=== PATIENT | male | born 1985 | race Caucasian/White ===

== ENCOUNTER 2019-01-19 13:12 | Outpatient (REF) | payer OTHER, SELFPAY ==
[2019-01-19 18:22] LABS: ALT 78 U/L (12-78); AST 34 U/L (15-37); Albumin 4.1 g/dL (3.4-5.0); Alkaline Phosphatase 68 U/L (46-116); Anion Gap 8.3 mmol/L (3-11); BUN 17 mg/dL (7-18); Bilirubin, Total 0.5 mg/dL (0.2-1.0); CO2 27.7 mmol/L (21.0-32.0); CREATININE 0.81 mg/dL (0.70-1.30); Calcium 9.4 mg/dL (8.5-10.1); Chloride 103 mmol/L (98-107); Cholesterol 164 mg/dL (50-200); Glucose 140 mg/dL (70-100); HDL Cholesterol 45 mg/dL (40-60); LDL CHOLESTEROL 103 mg/dL (<100); Potassium 4.1 mmol/L (3.5-5.1); Sodium 139 mmol/L (136-145); Triglyceride 70 mg/dL (30-150)
== END 2019-01-19 13:32 ==
LOC: NCHCN 13:12
PROVIDERS: PCP Family Medicine; Visit Provider Family Medicine
DX: I10 Essential (primary) hypertension (principal); R74.0 Nonspecific elevation of levels of transaminase and lactic acid dehydrogenase [LDH]; E78.5 Hyperlipidemia, unspecified
CPT/HCPCS: 80053; 80061; 83721

== ENCOUNTER 2019-01-23 11:15 | Outpatient (REF) | payer OTHER, SELFPAY ==
--- NOTE | 2019-01-23 10:30 | SKI_PTH ---
PATIENT: Garth Kruger JR LOC: [facility] U#:[id number] AGE/SX: 33/M ROOM: RE01/23/[address]: Elias Vital : 1985 BED: DIS: 01/23/2019 SPEC #: [id number] RECD: 01/23/19 12:50 STATUS: ADAMA REElo #: [id number] DOTTIE: 01/23/19 10:[address]: Elias Vital DEPT: Surgical Specimen RECD BY: Rehana Azul Tissues: 1 - SKIN BIOPSY(SHAVE/PUNCH) Procedures: SKIN LEVEL 4 Comments: [id number]
== END 2019-01-23 11:35 ==
LOC: NCHCN 11:15
PROVIDERS: PCP Family Medicine; Visit Provider Family Medicine
DX: D23.39 Other benign neoplasm of skin of other parts of face (principal)
CPT/HCPCS: 88305

== ENCOUNTER 2020-08-27 10:16 | Outpatient (REF) | payer BC, SELFPAY ==
[2020-08-27 19:13] LABS: HCT 44.3 % (40.0-50.0); HGB 15.3 g/dL (13.5-17.5); MCH 28.8 pg (27.0-33.0); MCHC 34.5 % (32.0-36.0); MCV 83.4 fL (80-95); MPV 12.9 fL (8.0-11.0); Platelet Count 222 10^3/uL (130-400); RBC 5.31 10^6/uL (4.36-5.78); RDW 12.1 % (11.8-14.1); RDW-SD 36.5 fL; WBC 6.44 10^3/uL (4.4-10.8)
[2020-08-27 19:23] LABS: ALT 45 U/L (16-63); AST 17 U/L (15-37); Alkaline Phosphatase 98 U/L (46-116); Anion Gap 10.1 mmol/L (3-11); BUN 16 mg/dL (7-18); Bilirubin, Total 0.3 mg/dL (0.2-1.0); CO2 25.9 mmol/L (21.0-32.0); CREATININE 0.75 mg/dL (0.70-1.30); Calcium 9.1 mg/dL (8.5-10.1); Chloride 103 mmol/L (98-107); Glucose 263 mg/dL (74-106); Potassium 4.1 mmol/L (3.5-5.1); Sodium 139 mmol/L (136-145); Total Protein 7.3 g/dL (6.4-8.2)
[2020-08-29 09:31] LABS: Hepatitis B Surface Ag Negative (Negative)
[2020-08-29 10:10] LABS: Hepatitis C Ab w Rflx HCV PCR Negative (Negative)
== END 2020-08-27 10:36 ==
LOC: NCHCN 10:16
PROVIDERS: PCP Family Medicine; Visit Provider Family Medicine
DX: Z00.00 Encounter for general adult medical examination without abnormal findings (principal); R74.01 Elevation of levels of liver transaminase levels; E11.9 Type 2 diabetes mellitus without complications; Z11.59 Encounter for screening for other viral diseases
CPT/HCPCS: 80053; 85027; 86803; 87340

== ENCOUNTER 2021-02-24 02:20 | Outpatient (CLI) | payer BC, SELFPAY ==
--- NOTE | 2021-02-24 10:47 | DI.RAD_ITS ---
EXAM: XR KNEE LT 3V AP,LAT,DELVIN CLINICAL HISTORY: LT KNEE PAIN, M25.562,PSORIASIS. TECHNIQUE: 2D digital imaging was performed. COMPARISON: No exams were available for comparison FINDINGS: There is no evidence of acute fracture although there does appear to be a joint effusion. Calcificat ions are noted in the inferior aspect of the patellar ligament, possibly related to sesamoid bones at this level or prior Emmanuel Schlatter's. Fabella is noted posteriorly. There are no fractures evide nt. No obvious degenerative changes. IMPRESSION: Patellar ligament findings as described above. There is joint effusion. This signifies a probable internal derangement. If clinically indicated fo llow-up MRI can be performed DATA REPOSITORY: RADIATION DOSE DELIVERED:
== END 2021-02-24 02:40 ==
PROVIDERS: PCP Family Medicine; Visit Provider Family Medicine
DX: M25.562 Pain in left knee (principal); M25.462 Effusion, left knee
CPT/HCPCS: 73562

== ENCOUNTER 2021-12-11 14:48 | Outpatient (REF) | payer BC, SELFPAY ==
[2021-12-11 16:41] LABS: ALT 41 U/L (16-63); AST 20 U/L (15-37); Alkaline Phosphatase 106 U/L (46-116); Anion Gap 8.5 mmol/L (3-11); BUN 10 mg/dL (7-18); Bilirubin, Total 0.5 mg/dL (0.2-1.0); CO2 28.5 mmol/L (21.0-32.0); CREATININE 0.8 mg/dL (0.70-1.30); Chloride 99 mmol/L (98-107); Glucose 396 mg/dL (74-106); Potassium 4.2 mmol/L (3.5-5.1); Sodium 136 mmol/L (136-145); Total Protein 7.7 g/dL (6.4-8.2)
[2021-12-11 17:09] LABS: HCT 45.3 % (40.0-50.0); HGB 15.6 g/dL (13.5-17.5); MCH 28.6 pg (27.0-33.0); MCHC 34.4 % (32.0-36.0); MPV 12.6 fL (8.0-11.0); Platelet Count 211 10^3/uL (130-400); RBC 5.46 10^6/uL (4.36-5.78); RDW 11.9 % (11.8-14.1); WBC 6.83 10^3/uL (4.4-10.8)
== END 2021-12-11 14:49 | disposition home or self-care (01) ==
LOC: LBN 14:48
PROVIDERS: PCP Family Medicine; Visit Provider Family Medicine
DX: E11.9 Type 2 diabetes mellitus without complications (principal); K76.0 Fatty (change of) liver, not elsewhere classified
CPT/HCPCS: 80053; 85027

== ENCOUNTER 2022-02-09 01:23 | Outpatient (CLI) | payer BC, SELFPAY ==
--- NOTE | 2022-02-09 08:15 | DI.MRI_ITS ---
Exam(s) MR LOWER JOINT LT WO EXAM: MR LOWER JOINT LT WO CLINICAL HISTORY: PAIN, INJURY,internal derangement lt knee,m23.92. TECHNIQUE: Multiplanar multisequence MRI was performed. COMPARISON: CR XR KNEE LT 3V AP,LAT,DELVIN from 02/24/2021 FINDINGS: BONES: There is no fracture or contusion pattern. JOINTS: Articular cartilage is unremarkable. Moderate-sized effusion is present. TENDONS: Extensor mechanism: Ossification adjacent to tibial tubercle. Patellar tendon shows normal thickness and signal. Medial retinaculum: Unremarkable. Lateral retinaculum: Unremarkable. Popliteus: Unremarkable. MUSCLES: Unremarkable. MENISCI: The medial meniscus is unremarkable. The lateral meniscus is unremarkable. SOFT TISSUES: Small Plunkett's cyst. LIGAMENTS: Anterior Cruciate: Fluid seen within fibers of distal ACL, near tibial attachment could indicate spra in. Posterior Cruciate: Unremarkable. Medial Collateral:Mild edema near proximal MCL at at the level of the femur. Lateral Collateral: Unremarkable. OTHER: IMPRESSION: ACL and MCL sprains. Joint effusion. No evidence of meniscal tear. DATA REPOSITORY:
== END 2022-02-09 01:43 ==
PROVIDERS: PCP Family Medicine; Visit Provider Student in an Organized Health Care Education/Training Program
DX: M25.562 Pain in left knee (principal); M23.8X2 Other internal derangements of left knee; M25.462 Effusion, left knee; S83.512A Sprain of anterior cruciate ligament of left knee, initial encounter; S83.412A Sprain of medial collateral ligament of left knee, initial encounter; M71.22 Synovial cyst of popliteal space [Baker], left knee
CPT/HCPCS: 73721

== ENCOUNTER 2023-02-17 18:16 | Outpatient (REF) | payer BC, SELFPAY ==
[2023-02-17 19:33] LABS: HCT 44.8 % (40.0-50.0); HGB 16.2 g/dL (13.5-17.5); MCH 29.4 pg (27.0-33.0); MCHC 36.2 % (32.0-36.0); MCV 81 fL (80-95); Platelet Count 218 10^3/uL (130-400); RBC 5.51 10^6/uL (4.36-5.78); RDW 12.1 % (11.8-14.1); RDW-SD 35.5 fL; WBC 6.48 10^3/uL (4.4-10.8)
[2023-02-17 19:45] LABS: ALT 72 U/L (16-63); AST 34 U/L (15-37); Albumin 4.1 g/dL (3.4-5.0); Alkaline Phosphatase 77 U/L (46-116); Anion Gap 5.6 mmol/L (3-11); BUN 11 mg/dL (7-18); Bilirubin, Total 0.5 mg/dL (0.2-1.0); CO2 30.4 mmol/L (21.0-32.0); CREATININE 0.8 mg/dL (0.70-1.30); Calcium 9.5 mg/dL (8.5-10.1); Chloride 99 mmol/L (98-107); Estimated GFR 115.45 (mL/min/1.73m2); Glucose 362 mg/dL (74-106); Potassium 3.9 mmol/L (3.5-5.1); Sodium 135 mmol/L (136-145); Total Protein 7.4 g/dL (6.4-8.2)
== END 2023-02-17 18:17 | disposition home or self-care (01) ==
LOC: NCHCN 18:16
PROVIDERS: PCP Family Medicine; Visit Provider Family Medicine
DX: K76.0 Fatty (change of) liver, not elsewhere classified (principal); I10 Essential (primary) hypertension; E11.9 Type 2 diabetes mellitus without complications
CPT/HCPCS: 80053; 85027

== ENCOUNTER 2024-04-04 13:44 | Outpatient (REF) | payer BC, SELFPAY ==
[2024-04-04 16:22] LABS: COMMENT (LAB VIEW ONLY) 296.94 mg/dL; Microalb ug/mg Crea 7.5 ug/mg Cr
== END 2024-04-04 13:45 | disposition home or self-care (01) ==
LOC: NCHCN 13:44
PROVIDERS: PCP Family Medicine; Visit Provider Student in an Organized Health Care Education/Training Program
DX: E11.9 Type 2 diabetes mellitus without complications (principal)
CPT/HCPCS: 82043; 82570

== ENCOUNTER 2024-07-10 13:25 | Outpatient (REF) | payer BC, SELFPAY ==
[2024-07-10 16:10] LABS: Anion Gap 9.1 mmol/L (3-11); BUN 12 mg/dL (7-18); CO2 26.9 mmol/L (21.0-32.0); CREATININE 0.7 mg/dL (0.70-1.30); Calcium 9.4 mg/dL (8.5-10.1); Calculated LDL 117 mg/dL (<100); Chloride 101 mmol/L (98-107); Cholesterol 200 mg/dL (<200); Estimated GFR 119.46 (mL/min/1.73m2); Glucose 297 mg/dL (74-106); HDL Cholesterol 45 mg/dL (40-60); Potassium 4.4 mmol/L (3.5-5.1); Sodium 137 mmol/L (136-145); Triglyceride 191 mg/dL (<150)
== END 2024-07-10 13:26 | disposition home or self-care (01) ==
LOC: NCHCN 13:25
PROVIDERS: PCP Student in an Organized Health Care Education/Training Program; Visit Provider Student in an Organized Health Care Education/Training Program
DX: E11.9 Type 2 diabetes mellitus without complications (principal); I10 Essential (primary) hypertension
CPT/HCPCS: 80048; 80061

== ENCOUNTER 2024-10-09 08:53 | Outpatient (CLI) | payer BC, SELFPAY ==
[2024-10-09 09:33] LABS: HCT 43.6 % (40.0-50.0); HGB 15.8 g/dL (13.5-17.5); MCH 30.4 pg (27.0-33.0); MCHC 36.2 % (32.0-36.0); MCV 84 fL (80-95); MPV 11.2 fL (8.0-11.0); Platelet Count 205 10^3/uL (130-400); RDW 12.4 % (11.8-14.1); RDW-SD 37.4 fL; WBC 6.21 10^3/uL (4.4-10.8)
[2024-10-09 09:59] LABS: Anion Gap 5.2 mmol/L (3-11); BUN 13 mg/dL (7-18); CO2 29.8 mmol/L (21.0-32.0); CREATININE 0.8 mg/dL (0.70-1.30); Calcium 9.1 mg/dL (8.5-10.1); Chloride 103 mmol/L (98-107); Estimated GFR 114.74 (mL/min/1.73m2); Glucose 179 mg/dL (74-106); Potassium 4.5 mmol/L (3.5-5.1); Sodium 138 mmol/L (136-145)
[2024-10-09 10:03] LABS: ALT 56 U/L (16-63); AST 24 U/L (15-37)
[2024-10-09 10:05] LABS: Cholesterol 240 mg/dL (<200); Triglyceride 157 mg/dL (<150)
== END 2024-10-09 08:54 | disposition home or self-care (01) ==
LOC: LBO 08:53
PROVIDERS: PCP Student in an Organized Health Care Education/Training Program; Visit Provider Dermatology
DX: L40.1 Generalized pustular psoriasis (principal); Z79.899 Other long term (current) drug therapy
CPT/HCPCS: 36415; 80048; 85027; 82465; 84450; 84460; 84478

== ENCOUNTER 2024-10-16 13:57 | Outpatient (CLI) | payer BC, SELFPAY ==
[2024-10-18 13:25] LABS: TB Interpretation Negative (Negative)
== END 2024-10-16 13:58 | disposition home or self-care (01) ==
LOC: LBO 13:57
PROVIDERS: PCP Student in an Organized Health Care Education/Training Program; Referring Provider Dermatology; Visit Provider Dermatology
DX: L40.0 Psoriasis vulgaris (principal); Z79.899 Other long term (current) drug therapy
CPT/HCPCS: 36415; 86480

== ENCOUNTER 2025-09-25 14:11 | Outpatient (REF) | payer BC, SELFPAY ==
[2025-09-25 16:58] LABS: Microalb ug/mg Crea 4.2 ug/mg Cr
[2025-09-25 19:46] LABS: Hemoglobin A1C 6.4 % (<5.7)
[2025-09-25 19:50] LABS: ALT 55 U/L (10-49); AST 33 U/L (<34); Albumin 4.7 g/dL (3.4-5.0); Alkaline Phosphatase 66 U/L (46-116); Anion Gap 7.6 mmol/L (3-11); BUN 11 mg/dL (9-23); Bilirubin, Total 0.50 mg/dL (0.2-1.2); CO2 24.4 mmol/L (20.0-31.0); Calcium 9.4 mg/dL (8.3-10.6); Chloride 110 mmol/L (98-107); Cholesterol 118 mg/dL (<200); Glucose 126 mg/dL (74-106); HDL Cholesterol 36 mg/dL (>40); Potassium 4.2 mmol/L (3.5-5.1); Sodium 142 mmol/L (136-145); Total Protein 7.5 g/dL (5.7-8.2)
== END 2025-09-25 14:12 | disposition home or self-care (01) ==
LOC: NCHCN 14:11
PROVIDERS: PCP Student in an Organized Health Care Education/Training Program; Visit Provider Student in an Organized Health Care Education/Training Program
DX: E11.9 Type 2 diabetes mellitus without complications (principal); I10 Essential (primary) hypertension; E78.5 Hyperlipidemia, unspecified
CPT/HCPCS: 80053; 80061; 82043; 82570; 83036